=== PATIENT | female | born 1980 | race Caucasian/White ===

== ENCOUNTER → 2019-06-23 09:51 | Outpatient (CLI) | payer OTHER, SELFPAY ==
--- NOTE | 2019-06-23 09:57 | XR_ITS ---
XR clavicle RT HISTORY: ITS.REASON: clavicle pain ORDERING PHYSICIAN: Daria Gallegos MD PATIENT AGE: 39 years COMPARISON: None FINDINGS: No fracture or dislocation. No lytic or blastic change. There is normal mineralization.. The joint spaces are well-preserved. No significant degenerative/arthritic changes. No erosive changes evident. IMPRESSION: Negative, no acute finding
--- NOTE | 2019-06-23 09:57 | XR_ITS ---
XR shoulder RT min 2V HISTORY: ITS.REASON: shoulder pain ORDERING PHYSICIAN: Daria Gallegos MD PATIENT AGE: 39 years Comparison: None FINDINGS: No fracture or dislocation. No lytic or blastic change. There is normal mineralization. The joint spaces are well-preserved. No significant degenerative/arthritic changes. No erosive changes evident. No bony subacromial stenosis IMPRESSION: Negative, no acute finding
--- NOTE | 2019-06-23 09:57 | XR_ITS ---
XR wrist RT min 3V HISTORY ITS.REASON: wrist pain ORDERING PHYSICIAN: Daria Gallegos MD PATIENT AGE: 39 years Comparison: None FINDINGS: No fracture or dislocation. No lytic or blastic change. There is normal mineralization.. The joint spaces are well-preserved. No significant degenerative/arthritic changes. No erosive changes evident.. IMPRESSION: Negative wrist
== END ==
PROVIDERS: Visit Provider Orthopaedic Surgery
DX: S49.91XA Unspecified injury of right shoulder and upper arm, initial encounter (principal)
CPT/HCPCS: 73000; 73030; 73110

== ENCOUNTER 2020-08-19 12:27 | Emergency (ER) | payer OTHER, SELFPAY ==
[2020-08-19 12:28] VITALS: BP 173/88; PULSE 99; RESP 18; TEMP 37.2; O2SAT 97; BMI 21.2
--- NOTE | 2020-08-19 12:29 | CT_ITS ---
PROCEDURE: CT ABDOMEN PELVIS WO CON CLINICAL INDICATION: L flank pain Left flank pain COMPARISON: CT ABDPELW/O CT ABD PELVIS W/O CONTRAST from 08/18/2016 TECHNIQUE: Axial images obtained with sagittal and coronal reformats. All CT scans at the facility use one or more dose reduction, viz: automated exposure control, ma/kV adjustment per patient size (including targeted exams where dose is matched to indication, i.e. head), or iterative reconstruction technique. FINDINGS: No acute finding in the lung bases. There has been a prior cholecystectomy. The liver and spleen have an unremarkable appearance. No adrenal mass evident. Unremarkable unenhanced appearance of the pancreas. There is slight increased density the cortical medullary junction of the kidneys on both sides. No renal calculi however are evident. There is mild left hydronephrosis and mild dilatation of the proximal ureter. The distal ureter is not well delineated due to patient's paucity of body fat as well as multiple unopacified fluid-filled bowel loops. Urinary bladder is nondistended. The left kidney appears somewhat edematous. No evidence of appendicitis. Multiple unopacified bowel loops in the abdomen or pelvis which could obscure or mimic pathology. If symptoms persist, consider repeat exam with IV and oral contrast.. There are scattered air-fluid levels within nondistended small bowel which could be seen with enteritis. No acute bony findings. There is a small umbilical hernia which contains fat. IMPRESSION: 1. Limited study without IV and oral contrast with poor contrast resolution due to patient's sparsely of abdominal fat. 2. Multiple unopacified bowel loops in the abdomen or pelvis which could obscure or mimic pathology. If symptoms persist, consider repeat exam with IV and oral contrast. There are nondistended fluid-filled loops of small bowel with a few air-fluid levels. Enteritis is a consideration. 3. There is mild dilatation of the left renal pelvis and proximal ureter. No definite ureteral calculus. These findings could be related to recently passed stone. The left kidney also appears somewhat edematous which could be seen with pyelonephritis. Dictated by: Giles Dillard MD 08/19/2020 13:35 Giles Dillard MD in [facility] 08/19/2020 13:35
--- NOTE | 2020-08-19 12:45 | [facility].EDGENADL ---
ED Disposition Clinical Impression: Enteritis Disposition: Home, Self-Care Condition on Discharge: Good Instructions: DI for Enteritis Prescriptions: Dicyclomine HCl [Bentyl 10mg capsule] 10 mg PO TID #21 cap Prescription Printed Acetaminophen [Tylenol 500mg tablet] 500 mg PO TID #20 tab Prescription Printed Referrals: Provider,Referral, [Primary Care Provider] - - Critical Care Critical Care Time: No Attestation: On 08/19/20, the high probability of a clinically significant, sudden or life threatening deterioration of the following system(s) required my full and direct attention, intervention and personal management. The time I documented below is in addition to time spent performing reported procedures but includes the following listed in this critical care notation. Medical Decision Making - Medical Records Medical records reviewed: Yes: I reviewed the patient's medical records. - John Inquiry Pt receiving controlled substance: Yes John was queried for this patient: No Reason not queried -: Emergent pt cond-no time Risks and benefits of using a controlled substance: were discussed with pt by me Vital Signs: 08/19/20 12:28 08/19/20 13:34 Temperature 98.9 F Temperature Source Oral Pulse Rate [Right Radial] 99 H 81 Respiratory Rate 18 Blood Pressure [Right Arm] 173/88 H 114/74 Blood Pressure Mean [Right Arm] 116 87 Blood Pressure Source [Right Arm] Automatic Cuff Automatic Cuff Blood Pressure Position [Right Arm] Sitting Sitting 02 Sat by Pulse Oximetry 97 98 Oxygen Delivery Method Room Air Room Air - Lab Data Lab Results 08/19/20 12:25: WBC 7.0, RBC 4.84, Hgb 15.0, Hct 43.2, MCV 89.4, MCH 31.1, MCHC 34.8, RDW 12.5, Plt Count 186, MPV 8.8, Neut % (Auto) 64.5, Lymph % (Auto) 25.1, Levy % (Auto) 9.3, Eos % (Auto) 0.6, Baso % (Auto) 0.4, Neut # (Auto) 4.5, Lymph # (Auto) 1.8, Levy # (Auto) 0.7, Eos # (Auto) 0.1, Baso # (Auto) 0.0 08/19/20 12:25: Sodium 138, Potassium 3.6, Chloride 103, Carbon Dioxide 25, Anion Gap 13.6, BUN 15, Creatinine 0.70, Estimated Creat Clear 83, Estimated GFR 92, Est GFR ( Amer) 112, Glucose 127 H, Calcium 9.6, Total Bilirubin 0.3, AST 34, ALT 22, Alkaline Phosphatase 112, Total Protein 7.5, Albumin 4.7, Globulin 2.8, Albumin/Globulin Ratio 1.7 08/19/20 12:25: Lipase 132 08/19/20 13:51: Urine Color Yellow, Urine Appearance Clear, Urine pH 6.5, Ur Specific [place] >= 1.030, Urine Protein Trace, Urine Glucose (UA) Negative, Urine Ketones 2+, Urine Blood 2+, Urine Nitrate Negative, Urine Bilirubin Negative, Urine Urobilinogen 1.0, Ur Leukocyte Esterase Negative Result diagrams: 08/19/20 12:25 08/19/20 12:25 Orders (Tests/Meds): ED MEDICATIONS Discontinued Medications Generic Name Dose Route Start Last Admin Trade Name Freq PRN Reason Stop Dose Admin Diphenhydramine HCl 25 mg 08/19/20 13:17 08/19/20 13:51 Diphenhydramine 50mg/Ml Vial IV 08/19/20 13:18 25 mg ONCE ONE Administration Fentanyl Citrate 50 mcg 08/19/20 12:43 08/19/20 12:50 Fentanyl 100mcg/2ml Vial IV 08/19/20 12:44 50 mcg ONCE ONE Administration Sodium Chloride 1,000 mls @ 999 mls/hr 08/19/20 13:00 08/19/20 12:50 Sod Chlor 0.9% 1000ml Bag IV 08/19/20 14:00 999 mls/hr .Q1H1M KEENA Administration Ketorolac Tromethamine 30 mg 08/19/20 12:30 08/19/20 12:50 Ketorolac 30mg/Ml Vial IV 08/19/20 12:31 30 mg ONCE ONE Administration Ondansetron HCl 4 mg 08/19/20 12:29 08/19/20 12:50 Ondansetron 4mg/2ml Vial IV 08/19/20 12:30 4 mg ONCE ONE Administration ORDERS Category Date Time Status Urinalysis and Microscopic Stat Lab 08/19/20 13:51 Results - Radiology Data #1 Image(s): Abdomen Image Reviewed: Yes I reviewed the patient's radiology results, Yes I have reviewed radiologist's interpretation IMPRESSION: 1. Limited study without IV and oral contrast with poor contrast resolution due to patient's sparsely of abdo
--- NOTE | 2020-08-19 12:50 | PC.NURSE ---
Pt is yelling out in pain. Writhing around in bed at this time. aware and has medicated pt.
--- NOTE | 2020-08-19 12:53 | PC.NURSE ---
pt to ct
[2020-08-19 12:54] LABS: Basophils % 0.4 % (0.1-2.0); Eosinophils # 0.1 K/mm3 (0.0-0.4); Eosinophils % 0.6 % (0.1-12.0); Hematocrit 43.2 % (37.0-47.0); Lymphocytes # 1.8 K/mm3 (0.7-4.5); Lymphocytes % 25.1 % (10-50); Mean Corpuscular HGB Conc 34.8 g/dL (31.8-35.4); Mean Corpuscular Hemoglobin 31.1 pg (27.0-31.2); Mean Corpuscular Volume 89.4 fl (81-99); Mean Platelet Volume 8.8 fl (7.4-10.4); Monocytes # 0.7 K/mm3 (0.1-1.0); Monocytes % 9.3 % (1.7-9.3); Neutrophils # 4.5 K/mm3 (1.8-7.8); Neutrophils % 64.5 % (37.0-80.0); Platelet Count 186 K/mm3 (142-424); Red Blood Count 4.84 M/mm3 (4.20-5.40); Red Cell Distribution Width 12.5 % (11.5-17.5)
[2020-08-19 12:59] LABS: Alanine Aminotransferase 22 U/L (12-78); Albumin Level 4.7 g/dl (3.5-5.0); Albumin/Globulin Ratio 1.7 (1.1-1.8); Alkaline Phosphatase 112 U/L (38-126); Anion Gap 13.6 mEq/L (5-15); Aspartate Amino Transferase 34 U/L (14-36); Bilirubin,Total 0.3 mg/dl (0.2-1.3); Blood Urea Nitrogen 15 mg/dl (7-17); Calcium 9.6 mg/dl (8.4-10.2); Carbon Dioxide 25 mmol/L (22.0-30.0); Chloride 103 mmol/L (98-107); Creatinine Clearance Estimated 83 mL/min (50-200); Estimated Glomerular Filt Rate 92 ml/min (>60); GFR (African American) 112 ML/MIN (>60); Globulin 2.8 g/dL (1.3-3.2); Glucose 127 mg/dl (74-100); Lipase 132 U/L (23-300); Potassium 3.6 mmoL/L (3.5-5.1); Sodium 138 mmol/L (136-145); Total Protein,Serum 7.5 g/dl (6.3-8.2)
--- NOTE | 2020-08-19 13:03 | PC.NURSE ---
Pt returned from rad.
[2020-08-19 13:34] VITALS: BP 114/74; PULSE 81; O2SAT 98
--- NOTE | 2020-08-19 13:46 | PC.NURSE ---
Pt up to restroom. States that she is unable to stand upright and is in so much pain. Pt is tearful. Pt states she will try to pee but she hasn't been able to pee all morning.
--- NOTE | 2020-08-19 13:51 | PC.NURSE ---
Pt back in bed after using the restroom.
[2020-08-19 13:57] LABS: Microscopic, Urine URINE MICROSCOPIC (MICROSCOPIC)
[2020-08-19 13:58] LABS: Appearance,Urine CLEAR (Clear); Blood, Urine 2+ (Negative); Color,Urine YELLOW (Yellow); Glucose,Urine (UA) Negative (Negative); Ketones,Urine 2+ (Negative); Leukocyte Esterase,Urine Negative (Negative); Nitrate,Urine Negative (Negative); PH,Urine 6.5 (5.0-8.5); Protein,Urine TRACE (Negative); Specific Gravity, Urine >= 1.030 (1.005-1.030)
[2020-08-19 14:03] LABS: Bilirubin,Urine Negative (Negative)
[2020-08-19 15:00] VITALS: BP 122/65; PULSE 74; RESP 17; TEMP 36.7; O2SAT 99
[2020-08-19 15:02] LABS: Squamous Epithelial Cell,Urine Occasional #/hpf (0-5)
== END 2020-08-19 15:01 | disposition home or self-care (01) ==
PROVIDERS: Emergency Provider Emergency Medicine
DX: K52.9 Noninfective gastroenteritis and colitis, unspecified (principal); Z87.442 Personal history of urinary calculi; F17.210 Nicotine dependence, cigarettes, uncomplicated; Z90.79 Acquired absence of other genital organ(s)
CPT/HCPCS: 74176; 80053; 81001; 83690; 85025; 96365; 96375; 99283; J2405